=== PATIENT | male | born 1935 | race Caucasian/White ===

== ENCOUNTER 2016-08-18 11:52 | Day surgery (SDC) | payer MEDICARE, OTHER ==
[2016-08-15 14:57] VITALS: BP 119/84
[2016-08-15 15:48] LABS: ASPARTATE AMINO TRANSFERASE 17 U/L (15-37); BLOOD UREA NITROGEN 13 mg/dL (7-18)
[~2016-08-18] VITALS: Ht 177.8 cm; Wt 86.4 kg
[~2016-08-18 11:52] MED LIST: ARGI500T2 PO; CALC1CAP8 PO; CHOL200024 PO; FISH OIL OMEGA 3 PO; FORSKOLIN PO; GLUC1CAP13 PO; HYDR25TA6 PO; LEVO50TA PO; LOSA25TA5 PO; LOSA50TA6 PO; METO25TA4 PO; MULT-717 PO; OMEP20CA14 PO; POTA20TA91 PO; PROP300T PO; RIVA20TA PO; TESTOSTERONE CREAM TP; VITA100T PO; [UNRECOGNIZED DRUG - OTHER] PO
[2016-08-18] MEDS ORDERED: MIDAZOLAM 1 MG/ML, 5ML ONE (14:00)
[2016-08-18] MEDS ORDERED: VERAPAMIL 2.5 MG/ML, 2ML ONE (14:01)
[2016-08-18] MEDS ORDERED: FENTANYL PF 100 MCG/2ML ONE (14:01)
[2016-08-18] MEDS ORDERED: BIVALIRUDIN 250 MG ONE (14:01)
[2016-08-18] MEDS ORDERED: LIDOCAINE 2%, 20ML ONE (14:01)
[2016-08-18] MEDS ORDERED: HEPARIN 1,000 UNITS/ML, 10ML ONE (14:01)
== END 2016-08-18 20:39 | disposition home or self-care (01) ==
LOC: CACL 11:52 → 5SO 15:57 → CACL 20:39
PROVIDERS: ATTEND Internal Medicine Cardiovascular Disease
DX: I25.10 Atherosclerotic heart disease of native coronary artery without angina pectoris (principal); I10 Essential (primary) hypertension; E78.5 Hyperlipidemia, unspecified; K21.9 Gastro-esophageal reflux disease without esophagitis; G47.30 Sleep apnea, unspecified; I35.1 Nonrheumatic aortic (valve) insufficiency; I48.0 Paroxysmal atrial fibrillation; Z88.0 Allergy status to penicillin; Z95.0 Presence of cardiac pacemaker; Z79.01 Long term (current) use of anticoagulants
CPT/HCPCS: 36415; 71020; 80053; 85025; 85610; 85730; 93458; 99156; C1894; J1644; J2250; J3010; J3490; Q9967; J0583

== ENCOUNTER 2017-05-17 05:51 | Observation (INO) | payer MEDICARE, OTHER ==
[~2017-05-17] VITALS: Ht 175.3 cm; Wt 89.1 kg
[~2017-05-17 05:51] MED LIST changes: +HEMP OIL
[2017-05-17 06:40] LABS: BASOPHILS # (AUTO) 0.05 x10^3/uL (0-0.1); BASOPHILS % (AUTO) 1 % (0-1); EOSINOPHILS # (AUTO) 0.33 x10^3/uL (0-0.4); EOSINOPHILS % (AUTO) 4 % (1-7); LYMPHOCYTES # (AUTO) 1.82 x10^3/uL (1-3.4); LYMPHOCYTES % (AUTO) 24 % (22-44); MD NO; MEAN CORPUSCULAR HEMOGLOBIN 33.6 pg (27.5-34.5); MEAN CORPUSCULAR HGB CONC 33.9 g/dL (33.2-36.2); MONOCYTES % (AUTO) 8 % (2-9); NEUTROPHILS # (AUTO) 4.66 x10^3/uL (1.8-6.8); NEUTROPHILS % (AUTO) 63 % (42-75); PLATELET COUNT 170 x10^3/uL (130-400); RED BLOOD COUNT 5.09 x10^6/uL (4.38-5.82); RED CELL DISTRIBUTION WIDTH 13.7 % (9.4-14.8)
[2017-05-17 06:49] LABS: INTERNATIONAL NORMALIZED RATIO 1.29 (0.93-1.1); PROTHROMBIN TIME 13.3 Seconds (9.6-11.5)
[2017-05-17 06:51] LABS: ALANINE AMINOTRANSFERASE 32 U/L (12-78); ALBUMIN 3.8 g/dL (3.4-5.0); ANION GAP 5 mmol/L (5-15); CALCIUM 8.6 mg/dL (8.5-10.1); CHLORIDE 110 mmol/L (98-107)
[2017-05-17 06:55] LABS: ALKALINE PHOSPHATASE 102 U/L (45-117); BILIRUBIN,TOTAL 0.4 mg/dL (0.2-1.0); TOTAL PROTEIN 6.6 g/dL (6.4-8.2); TROPONIN I < 0.015 ng/mL (0.000-0.045)
[2017-05-17] MEDS ORDERED: NITROGLYCERIN 0.4 MG BOTTLE (25 TABS) SL PRN (08:30)
[2017-05-17] MEDS ORDERED: ACETAMINOPHEN 650 MG/20.3 ML UDC PO PRN (08:30)
[2017-05-17] MEDS ORDERED: [UNRECOGNIZED DRUG - OTHER] PO SCH (08:30)
[2017-05-17] MEDS ORDERED: ASPIRIN 325 MG TABLET EC PO ONE (08:30)
[2017-05-17] MEDS ORDERED: ONDANSETRON 2MG/ML, 2ML IVP PRN (08:30)
[2017-05-17] MEDS ORDERED: PROPAFENONE 150 MG TABLET PO SCH (08:30)
[2017-05-17] MEDS ORDERED: NITROGLYCERIN 0.4 MG/SPRAY SL PRN (08:30)
[2017-05-17] MEDS ORDERED: BISACODYL 10 MG SUPP PR PRN (08:30)
[2017-05-17] MEDS ORDERED: BISACODYL 5 MG EC TABLET PO PRN (08:30)
[2017-05-17 08:46] VITALS: BP 97/70
[2017-05-17] MEDS: [UNRECOGNIZED DRUG - REMARK] PO SCH (09:00)
[2017-05-17] MEDS ORDERED: FORSKOLIN PO SCH (09:00)
[2017-05-17] MEDS ORDERED: TEMPLATE NON-FORMULARY MED. (Gluc Su/Msm/Magnesium/Vit C** (Glucosamine Complex-Msm Cap**) PO SCH (09:00)
[2017-05-17] MEDS ORDERED: LOSARTAN 50MG TABLET PO SCH (09:00)
[2017-05-17] MEDS ORDERED: ARGININE 500 MG PO SCH (09:00)
[2017-05-17 09:12] LABS: CHOLESTEROL, TOTAL 114 mg/dL (140-239); TRIGLYCERIDES 107 mg/dL (50-200); VLDL CHOLESTEROL 21 mg/dL (0-25)
[2017-05-17 09:15] LABS: CHOL/HDL RATIO 2.9; HDL CHOL % 35 % (26-37); HDL CHOLESTEROL (DIRECT) 40 mg/dL (40-60); LDL CHOLESTEROL,CALCULATED 53 mg/dL (54-169); LDL/HDL RATIO 1.3 (0.5-3.0); TROPONIN I < 0.015 ng/mL (0.000-0.045)
[2017-05-17 09:17] VITALS: BP 97/70
[2017-05-17] MEDS: OMEGA-3/FISH OIL CAPSULE PO SCH (09:41)
[2017-05-17] MEDS: CHOLECALCIFEROL 1,000 UNIT TABLET PO SCH (09:41)
[2017-05-17] MEDS: RIVAROXABAN 20 MG TABLET PO SCH (09:41)
[2017-05-17] MEDS: CALCIUM/VITAMIN D3 250-125 TABLET PO SCH (09:41)
[2017-05-17] MEDS: SODIUM CHLORIDE FLUSH 10ML SYR IVF SCH ×2 (09:44→21:05)
[2017-05-17] MEDS ORDERED: PROPAFENONE 300 MG HOMEMEDPO SCH (09:50)
[2017-05-17] MEDS ORDERED: PROPAFENONE MC SCH (10:00)
[2017-05-17 13:25] LABS: TROPONIN I < 0.015 ng/mL (0.000-0.045)
[2017-05-17 18:41] VITALS: BP 103/64
[2017-05-17] MEDS ORDERED: CALCIUM CARBONATE 500 MG TAB.CHEW PO PRN (21:00)
[2017-05-17] MEDS: PROPAFENONE 300 MG HOMEMEDPO SCH (21:00)
[2017-05-18 02:05] VITALS: BP 120/72
[2017-05-18] MEDS ORDERED: LEVOTHYROXINE 50 MCG TABLET PO SCH (06:00)
[2017-05-18] MEDS ORDERED: ASPIRIN 325 MG TABLET EC PO SCH (06:00)
[2017-05-18 07:44] VITALS: BP 113/73
[2017-05-18] MEDS: OMEGA-3/FISH OIL CAPSULE PO SCH (07:48)
[2017-05-18] MEDS: PROPAFENONE 300 MG HOMEMEDPO SCH (07:49)
[2017-05-18] MEDS: RIVAROXABAN 20 MG TABLET PO SCH (07:49)
[2017-05-18] MEDS: CHOLECALCIFEROL 1,000 UNIT TABLET PO SCH (07:49)
[2017-05-18] MEDS: SODIUM CHLORIDE FLUSH 10ML SYR IVF SCH (07:49)
[2017-05-18] MEDS: CALCIUM/VITAMIN D3 250-125 TABLET PO SCH (07:49)
[2017-05-18] MEDS: [UNRECOGNIZED DRUG - REMARK] PO SCH (07:50)
[2017-05-18] MEDS ORDERED: LOSARTAN 50MG TABLET PO SCH (09:00)
[2017-05-18] MEDS ORDERED: REGADENOSON 0.4 MG/5 ML SYRINGE ONE (09:40)
[2017-05-18 14:27] VITALS: BP 115/68
== END 2017-05-18 16:25 | disposition home or self-care (01) ==
LOC: ED 07:45 → UNDOADMIN 07:46 → EDIP 07:46 → ED 08:00 → 5SO 08:28 → EDIP 08:34 → 5SO 08:34 → DCLOUNGE 05-18 16:00 → 5SO 05-18 16:00 → UNDODISIN 05-18 16:25
PROVIDERS: ADMIT Internal Medicine; ATTEND Internal Medicine
DX: R07.89 Other chest pain (principal); I48.91 Unspecified atrial fibrillation; I10 Essential (primary) hypertension; E83.119 Hemochromatosis, unspecified; E03.9 Hypothyroidism, unspecified; Z85.46 Personal history of malignant neoplasm of prostate; Z88.1 Allergy status to other antibiotic agents
CPT/HCPCS: 36415; 71045; 78452; 80053; 80061; 83880; 84484; 85025; 85610; 85730; 93005; 93017; 99285; A9502; C9898; G0378; J2785

== ENCOUNTER 2017-09-26 14:23 | Inpatient (IN) | payer MEDICARE, OTHER ==
[~2017-09-26] VITALS: Ht 175.3 cm; Wt 92.8 kg
[2017-09-26] MEDS ORDERED: ONDANSETRON 2MG/ML, 2ML IVPush ONE (15:30)
[2017-09-26] MEDS ORDERED: SODIUM CHLORIDE FLUSH 10ML SYR IVF ONE (15:30)
[2017-09-26] MEDS ORDERED: ONDANSETRON 2MG/ML, 2ML ONE (15:49)
[2017-09-26 15:51] LABS: MEAN CORPUSCULAR HGB CONC 32.9 g/dL (33.2-36.2); MEAN CORPUSCULAR VOLUME 97.2 fL (81-97); MEAN PLATELET VOLUME 8.3 fL (7.4-10.4); PLATELET COUNT 205 x10^3/uL (130-400); RED BLOOD COUNT 5.03 x10^6/uL (4.38-5.82); RED CELL DISTRIBUTION WIDTH 13.1 % (9.4-14.8)
[2017-09-26 15:52] LABS: ANION GAP 8 mmol/L (5-15); CALCIUM 8.8 mg/dL (8.5-10.1); CHLORIDE 109 mmol/L (98-107)
[2017-09-26 15:56] LABS: ALANINE AMINOTRANSFERASE 27 U/L (12-78); ALKALINE PHOSPHATASE 91 U/L (45-117); BILIRUBIN,TOTAL 0.4 mg/dL (0.2-1.0); CREATININE 1.43 mg/dL (0.7-1.3); TOTAL PROTEIN 7.2 g/dL (6.4-8.2); TROPONIN I < 0.015 ng/mL (0.000-0.045)
[2017-09-26 16:06] LABS: INTERNATIONAL NORMALIZED RATIO 1.14 (0.93-1.1); PROTHROMBIN TIME 11.8 Seconds (9.6-11.5)
[2017-09-26 16:20] LABS: MD YES
[2017-09-26 16:23] LABS: BAND#(MANUAL) 1.54 x10^3/uL; BANDS%(MANUAL) 8 % (0-7); EOS#(MANUAL) 0.19 x10^3/uL (0.0-0.4); EOS% (MANUAL) 1 % (1-7); LYMPH#(MANUAL) 0.38 x10^3/uL (1-3.4); LYMPHS% (MANUAL) 2 % (22-44); MONOS#(MANUAL) 0.96 x10^3/uL (0.3-2.7); MONOS% (MANUAL) 5 % (2-9); SEG#(MANUAL) 16.13 x10^3/uL (1.8-6.8); SEGS% (MANUAL) 84 % (42-75)
[2017-09-26 16:25] LABS: <PLATELET ESTIMATE> ADEQUATE; <PLT MORPHOLOGY> NORMAL PLT MORPH
[2017-09-26 16:39] LABS: MICROSCOPIC NOT IND
[2017-09-26 16:52] LABS: CULTURE INDICATED? NO
[2017-09-26] MEDS ORDERED: OMNIPAQUE 350 MG/ML, 100ML BOTTLE ONE (17:26)
[2017-09-26] MEDS ORDERED: SODIUM CHLORIDE 0.9% 1,000ML IVBOLUS ONE (18:00)
[2017-09-26 18:25] LABS: CLOSTRIDIUM DIFFICILE ANTIGEN NEGATIVE; CLOSTRIDIUM DIFFICILE TOXIN NEGATIVE (Negative)
[2017-09-26] MEDS ORDERED: DOCUSATE 100 MG CAPSULE PO PRN (19:00)
[2017-09-26] MEDS ORDERED: HYDROcodone/APAP 5/325 TABLET PO PRN (19:00)
[2017-09-26] MEDS ORDERED: hydrALAzine 20 MG/ML, 1ML IVPush PRN (19:00)
[2017-09-26] MEDS ORDERED: BISACODYL 10 MG SUPP PR PRN (19:00)
[2017-09-26] MEDS ORDERED: ONDANSETRON 2MG/ML, 2ML IVPush PRN (19:00)
[2017-09-26] MEDS ORDERED: ONDANSETRON ODT 4 MG PO PRN (19:00)
[2017-09-26] MEDS ORDERED: morphine SULFATE 10 MG/ML, 1ML IVPush PRN (19:00)
[2017-09-26] MEDS ORDERED: HEPARIN 5,000 UNITS/ML, 1ML SQ SCH (19:00)
[2017-09-26] MEDS ORDERED: ACETAMINOPHEN 325 MG TABLET PO PRN (19:00)
[2017-09-26] MEDS ORDERED: POLYETHYLENE GLYCOL 17 GM PACKET PO PRN (19:00)
[2017-09-26 19:21] VITALS: BP 114/66
[2017-09-26] MEDS: SODIUM CHLORIDE 0.9% 1,000 ML IV SCH (21:09)
[2017-09-26] MEDS: SUCRALFATE 1 GM/10 ML UDC PO SCH (21:09)
[2017-09-26] MEDS: FAMOTIDINE 20 MG TABLET PO SCH (21:18)
[2017-09-27 02:17] VITALS: BP 93/52
[2017-09-27] MEDS: SODIUM CHLORIDE 0.9% 1,000 ML IV SCH (04:57)
[2017-09-27 05:12] LABS: MEAN CORPUSCULAR HEMOGLOBIN 32.6 pg (27.5-34.5); MEAN CORPUSCULAR HGB CONC 33.5 g/dL (33.2-36.2); MEAN CORPUSCULAR VOLUME 97.3 fL (81-97); MEAN PLATELET VOLUME 8.7 fL (7.4-10.4); PLATELET COUNT 164 x10^3/uL (130-400); RED BLOOD COUNT 4.05 x10^6/uL (4.38-5.82); RED CELL DISTRIBUTION WIDTH 13.1 % (9.4-14.8)
[2017-09-27 05:19] LABS: CHLORIDE 113 mmol/L (98-107)
[2017-09-27 05:35] LABS: ALANINE AMINOTRANSFERASE 17 U/L (12-78); ALBUMIN 3.1 g/dL (3.4-5.0); ALKALINE PHOSPHATASE 57 U/L (45-117); ANION GAP 6 mmol/L (5-15); BILIRUBIN,TOTAL 0.9 mg/dL (0.2-1.0); CALCIUM 7.7 mg/dL (8.5-10.1); CREATININE 1.12 mg/dL (0.7-1.3); TOTAL PROTEIN 5.4 g/dL (6.4-8.2)
[2017-09-27 05:46] LABS: BASOPHILS # (AUTO) 0.03 x10^3/uL (0-0.1); BASOPHILS % (AUTO) 0 % (0-1); EOSINOPHILS # (AUTO) 0.61 x10^3/uL (0-0.4); EOSINOPHILS % (AUTO) 7 % (1-7); LYMPHOCYTES # (AUTO) 1.28 x10^3/uL (1-3.4); LYMPHOCYTES % (AUTO) 16 % (22-44); MD SCAN; MONOCYTES # (AUTO) 0.82 x10^3/uL (0.2-0.8); MONOCYTES % (AUTO) 10 % (2-9); NEUTROPHILS # (AUTO) 5.44 x10^3/uL (1.8-6.8); NEUTROPHILS % (AUTO) 67 % (42-75)
[2017-09-27] MEDS ORDERED: LEVOTHYROXINE 50 MCG TABLET PO SCH (06:00)
[2017-09-27 06:49] VITALS: BP 92/53
[2017-09-27] MEDS: SUCRALFATE 1 GM/10 ML UDC PO SCH ×2 (08:12→11:17)
[2017-09-27] MEDS ORDERED: RIVAROXABAN 20 MG TABLET PO SCH (09:00)
[2017-09-27] MEDS ORDERED: MULTIVITS,STRESS FORMULA 1 TABLET PO SCH (09:00)
[2017-09-27] MEDS ORDERED: PROPAFENONE 150 MG TABLET PO SCH (09:00)
[2017-09-27] MEDS ORDERED: MULTIVITAMINS/MINERALS TABLET PO SCH (09:00)
[2017-09-27] MEDS: FAMOTIDINE 20 MG TABLET PO SCH (11:16)
[2017-09-27] MEDS ORDERED: ONDA4TAB13 PO (12:09)
== END 2017-09-27 13:39 | disposition home or self-care (01) | DRG 391 ==
LOC: ED 15:10 → EDIP 18:13 → 3NE 19:14
PROVIDERS: ADMIT Internal Medicine; ATTEND Internal Medicine
DX: K52.9 Noninfective gastroenteritis and colitis, unspecified (principal); N17.0 Acute kidney failure with tubular necrosis; D68.69 Other thrombophilia; E44.0 Moderate protein-calorie malnutrition; R65.10 Systemic inflammatory response syndrome (SIRS) of non-infectious origin without acute organ dysfunction; E03.9 Hypothyroidism, unspecified; E86.0 Dehydration; G47.33 Obstructive sleep apnea (adult) (pediatric); I10 Essential (primary) hypertension; I95.9 Hypotension, unspecified; I48.2 Chronic atrial fibrillation; K57.30 Diverticulosis of large intestine without perforation or abscess without bleeding; K80.20 Calculus of gallbladder without cholecystitis without obstruction; Z79.01 Long term (current) use of anticoagulants; Z85.46 Personal history of malignant neoplasm of prostate; Z95.0 Presence of cardiac pacemaker; Z68.30 Body mass index [BMI] 30.0-30.9, adult
CPT/HCPCS: 36415; 74022; 74177; 80053; 81003; 83605; 83690; 83735; 84100; 84484; 85025; 85610; 85730; 87040; 87046; 87252; 87324; 87427; 89055; 93005; 99285; Q9967; J7030

== ENCOUNTER 2017-11-12 11:55 | Emergency (ER) | payer MEDICARE, OTHER ==
[~2017-11-12] VITALS: Ht 172.7 cm; Wt 90.9 kg
[~2017-11-12 11:55] MED LIST changes: -LOSA25TA5 PO; +LOSA25TA6 PO; -LOSA50TA6 PO; +LOSA50TA7 PO; +ONDA4TAB13 PO
[2017-11-12 11:59] VITALS: BP 143/87
[2017-11-12] MEDS ORDERED: ONDANSETRON ODT 4 MG PO ONE ×2 (12:00→14:00)
[2017-11-12] MEDS ORDERED: SODIUM CHLORIDE FLUSH 10ML SYR IVF ONE (12:00)
[2017-11-12] MEDS ORDERED: ONDANSETRON ODT 4 MG ONE ×2 (12:11→13:41)
[2017-11-12 12:22] LABS: BASOPHILS # (AUTO) 0.02 x10^3/uL (0-0.1); BASOPHILS % (AUTO) 0 % (0-1); EOSINOPHILS # (AUTO) 0.34 x10^3/uL (0-0.4); EOSINOPHILS % (AUTO) 5 % (1-7); LYMPHOCYTES # (AUTO) 1.16 x10^3/uL (1-3.4); LYMPHOCYTES % (AUTO) 17 % (22-44); MD NO; MEAN CORPUSCULAR HEMOGLOBIN 29.9 pg (27.5-34.5); MEAN CORPUSCULAR VOLUME 90.6 fL (81-97); MEAN PLATELET VOLUME 8.2 fL (7.4-10.4); MONOCYTES # (AUTO) 0.53 x10^3/uL (0.2-0.8); MONOCYTES % (AUTO) 8 % (2-9); NEUTROPHILS # (AUTO) 4.73 x10^3/uL (1.8-6.8); NEUTROPHILS % (AUTO) 70 % (42-75); PLATELET COUNT 217 x10^3/uL (130-400); RED BLOOD COUNT 4.82 x10^6/uL (4.38-5.82); RED CELL DISTRIBUTION WIDTH 15.1 % (9.4-14.8)
[2017-11-12 12:34] LABS: ALBUMIN 3.9 g/dL (3.4-5.0); ANION GAP 7 mmol/L (5-15); CALCIUM 8.5 mg/dL (8.5-10.1); CHLORIDE 109 mmol/L (98-107); CREATININE 1.26 mg/dL (0.7-1.3)
[2017-11-12 12:42] LABS: TROPONIN I < 0.015 ng/mL (0.000-0.045)
[2017-11-12] MEDS ORDERED: METOCLOPRAMIDE 5 MG/ML, 2ML ONE (12:44)
[2017-11-12] MEDS ORDERED: METOCLOPRAMIDE 5 MG/ML, 2ML IVPush ONE (13:00)
[2017-11-12 13:04] LABS: INTERNATIONAL NORMALIZED RATIO 1.17 (0.93-1.1); PROTHROMBIN TIME 12.1 Seconds (9.6-11.5)
[2017-11-12] MEDS ORDERED: CEFAZOLIN PMX 1GM/50ML 50 ML IV ONE (13:30)
[2017-11-12] MEDS ORDERED: CEFAZOLIN PMX 1GM/50ML 50 ML ONE (13:39)
== END 2017-11-12 13:50 | disposition short-term general hospital (02) ==
LOC: ED 12:55
DX: S06.6X0A Traumatic subarachnoid hemorrhage without loss of consciousness, initial encounter (principal); S02.109A Fracture of base of skull, unspecified side, initial encounter for closed fracture; G30.1 Alzheimer's disease with late onset; F02.80 Dementia in other diseases classified elsewhere, unspecified severity, without behavioral disturbance, psychotic disturbance, mood disturbance, and anxiety; Z79.01 Long term (current) use of anticoagulants; I10 Essential (primary) hypertension; I48.91 Unspecified atrial fibrillation; Z88.0 Allergy status to penicillin; Z95.0 Presence of cardiac pacemaker; W22.8XXA Striking against or struck by other objects, initial encounter; Y93.89 Activity, other specified; Y92.009 Unspecified place in unspecified non-institutional (private) residence as the place of occurrence of the external cause; Y99.8 Other external cause status
CPT/HCPCS: 36415; 70450; 72125; 80048; 82040; 84484; 85025; 85610; 85730; 93005; 96365; 96375; 99285; J0690; J2765; Q0162